=== PATIENT | female | born 1990 | race Two or more races ===

== ENCOUNTER 2025-01-26 16:23 | Inpatient (IN) | payer OTHER ==
[~2025-01-26] VITALS: Ht 162.6 cm; Wt 73.0 kg
[2025-01-26 16:55] LABS: PLATELET COUNT, AUTOMATED 228 10^3/uL (150-450)
[2025-01-26 17:20] LABS: AMPHETAMINES LEVEL URINE NEGATIVE (NEGATIVE); BARBITURATES URINE NEGATIVE (NEGATIVE); BENZODIAZEPINES URINE NEGATIVE (NEGATIVE); CANNABINOIDS URINE NEGATIVE (NEGATIVE); COCAINE METABOLITE URINE NEGATIVE (NEGATIVE); METHADONE URINE NEGATIVE (NEGATIVE); OPIATES URINE NEGATIVE (NEGATIVE); PHENCYCLIDINE URINE NEGATIVE (NEGATIVE)
[2025-01-26 17:22] LABS: ETHYL ALCOHOL (ETHANOL) 0.004 % (0.000-0.010); HCG, SERUM QUALITATIVE NEGATIVE (NEGATIVE)
[2025-01-26 17:24] LABS: ALT/SGPT 19 U/L (7.0-40); AST/SGOT 21 U/L (<34); CALCIUM LEVEL 9.2 MG/DL (8.5-10.1); CARBON DIOXIDE LEVEL 24 MMOL/L (20-31); CHLORIDE LEVEL 103 MMOL/L (98-107); CREATININE FOR GFR 0.88 MG/DL (0.55-1.30); GLOMERULAR FILTRATION RATE 88.9 (>60); POTASSIUM SERUM 3.6 MMOL/L (3.5-5.1); SALICYLATE LEVEL < 3.0 MG/DL (<30); SODIUM LEVEL 140 MMOL/L (136-145)
[2025-01-26] MEDS ORDERED: HOME MED LIST COMPLETE! XX SCH (20:05)
[2025-01-27] MEDS ORDERED: IBUPROFEN 400 MG TAB PO PRN (00:20)
[2025-01-27] MEDS ORDERED: MAALOX 30 ML SUSP *UDC PO PRN (00:20)
[2025-01-27] MEDS ORDERED: traZODone 50 MG TAB PO PRN (00:20)
[2025-01-27] MEDS ORDERED: ACETAMINOPHEN 325 MG TAB PO PRN (00:20)
[2025-01-27 01:20] VITALS: BP 109/81; TEMP 97.2; O2SAT 99
[2025-01-27 06:36] VITALS: BP 109/81; TEMP 97.2; O2SAT 99
[2025-01-27 15:03] VITALS: BP 113/75; TEMP 97; O2SAT 100
[2025-01-28 06:00] VITALS: BP 86/52; TEMP 97.4; O2SAT 98
[2025-01-28 07:06] VITALS: BP 96/72
[2025-01-28] MEDS: MOM 30 ML SUSPENSION UDC PO PRN (12:02)
[2025-01-28 15:19] VITALS: BP 117/75; TEMP 97.5; O2SAT 100
[2025-01-28 20:51] VITALS: BP 117/75; TEMP 97.5; O2SAT 100
[2025-01-29 06:48] VITALS: BP 98/66; TEMP 97.6; O2SAT 100
== END 2025-01-29 09:52 | disposition home or self-care (01) | DRG 881 ==
LOC: M ED 16:23 → M ED INP 01-27 00:16 → M PSY 01-27 00:58
PROVIDERS: ADMIT Student in an Organized Health Care Education/Training Program; ATTEND Student in an Organized Health Care Education/Training Program
DX: F32.A Depression, unspecified (principal); R45.851 Suicidal ideations; F43.21 Adjustment disorder with depressed mood; Z91.013 Allergy to seafood; Z63.0 Problems in relationship with spouse or partner